=== PATIENT | female | born 1935 | race Caucasian/White ===

== ENCOUNTER 2021-12-02 11:43 | Inpatient (IN) | payer OTHER, MEDICAID, SELFPAY ==
[~2021-12-02] VITALS: Ht 160 cm; Wt 68.0 kg
[2021-12-02 11:48] VITALS: BP 133/83
--- NOTE | 2021-12-02 11:48 | NUR ---
86 Y/O F BIBA FROM HOME C/O FALL OCCURED ON THURSDAY. UNKNOWN LOC. NO BLOOD THINNERS. NO TRAUMA OR INJURY. GCS 14. A&OX2. PT DENIES ANY PAIN. MEDHX: HTN, ARTHRITIS NKA
[2021-12-02] MEDS ORDERED: NACL 0.9% 1,000 ML IV ONE ×2 (11:50→15:50)
--- NOTE | 2021-12-02 12:09 | NUR ---
PT'S JYOTSNA PHONE NUMBER SEBASTIEN NINI [phone]
--- NOTE | 2021-12-02 12:41 | NUR ---
BLOOD WORK COLLECTED AND SENT TO LAB
--- NOTE | 2021-12-02 12:51 | NUR ---
PT TAKEN TO CT SCAN VIA [facility]
[2021-12-02 12:52] LABS: HEMOGLOBIN 13.8 g/dL (12.0-16.0); LYMPHOCYTES # (AUTO) 0.9 K/uL (2.5-16.5)
[2021-12-02 12:55] LABS: BASOPHILS % (AUTO) 0.3 % (0.0-2.0); EOSINOPHILS % (AUTO) 0.2 % (0.0-4.0); HEMATOCRIT 34.5 % (36-48); LYMPHOCYTES % (AUTO) 7.6 % (20.5-51.1); MEAN CORPUSCULAR HEMOGLOBIN 38 pg (27-31); MEAN CORPUSCULAR HGB CONC 40 g/dL (33-37); MEAN CORPUSCULAR VOLUME 94.6 fL (80-94); MONOCYTES # (AUTO) 0.8 K/uL (0.8-1.0); MONOCYTES % (AUTO) 7.3 % (1.7-9.3); NEUTROPHILS # (AUTO) 9.6 K/uL (1.8-7.7); NEUTROPHILS % (AUTO) 84.6 % (42.2-75.2); PLATELET COUNT (AUTO) 275 K/uL (140-450); RED BLOOD CELL COUNT(AUTO) 3.65 MIL/uL (4.20-5.40); RED CELL DISTRIBUTION WIDTH 13.9 % (11.6-13.7); WHITE BLOOD COUNT (AUTO) 11.4 K/uL (4.8-10.8)
--- NOTE | 2021-12-02 13:11 | NUR ---
pt returned from CT via [facility]
[2021-12-02 13:33] LABS: ANION GAP 18.5 (8-16); CHLORIDE 108 mmol/L (98-107); CREATININE 0.8 mg/dL (0.6-1.3); GLUCOSE 128 mg/dL (74-106); POTASSIUM 3.5 mmol/L (3.5-5.1); SODIUM SERUM 147 mmol/L (136-145); UREA NITROGEN, BLOOD 58 mg/dL (7-18)
[2021-12-02 13:36] LABS: ALBUMIN 3.6 g/dL (3.4-5.0); BILIRUBIN,DIRECT 0.2 mg/dL (0.0-0.3); PHOSPHORUS 3.6 mg/dL (2.5-4.9); TOTAL BILIRUBIN 1.2 mg/dL (0.0-1.0)
--- NOTE | 2021-12-02 13:58 | NUR ---
PT PLACED ON BEDPAN TO AID IN COLLECTING URINE.
--- NOTE | 2021-12-02 14:47 | NUR ---
PT IS LAYING IN BED AT LOWEST LEVEL WITH SIDE RAILS UP. VOCIES NO COMPLAINTS OF PAIN AT THIS TIME.
--- NOTE | 2021-12-02 16:02 | NUR ---
PT IS LAYING IN BED COMFORTABLY. NORMAL VITAL SIGNS AT THIS MOMENT.
--- NOTE | 2021-12-02 16:19 | NUR ---
URINE SAMPLE WAS WALKED TO LAB AND RECIEVED BY [employer].
--- NOTE | 2021-12-02 16:40 | NUR ---
ANEUDY OCONNOR WALKED TO LAB AND HANDED TO [employer].
[2021-12-02] MEDS ORDERED: DONE5TAB6 PO (16:53)
[2021-12-02] MEDS ORDERED: LOVA40TA4 PO (16:53)
[2021-12-02] MEDS ORDERED: METO50TE2 PO (16:53)
[2021-12-02] MEDS ORDERED: HYDR-4004 PO (16:53)
[2021-12-02] MEDS ORDERED: AMLO2.5T PO (16:53)
[2021-12-02] MEDS ORDERED: ENAL-197 PO (16:53)
[2021-12-02 17:23] LABS: BILIRUBIN,URINE 1+ (NEGATIVE); BLOOD, URINE 2+ (NEGATIVE); LEUKOCYTE ESTERASE ,URINE 2+ (NEGATIVE); NITRITE, URINE POSITIVE (NEGATIVE); UGLUCOSE NEGATIVE (NEGATIVE)
[2021-12-02 17:40] LABS: APPEARANCE,URINE CLOUDY (CLEAR); COLOR,URINE AMBER (YELLOW)
[2021-12-02 18:12] LABS: RBC,URINE 11-20 (MOD) /HPF (0-5); WBC,URINE 20-60 /HPF (0-5)
[2021-12-02] MEDS ORDERED: guaiFENesin DM 200/20 MG-10 ML 10 ML UDC PO PRN (18:55)
[2021-12-02] MEDS ORDERED: POTASSIUM CHLORIDE 10 MEQ TABER PO PRN (18:55)
[2021-12-02] MEDS ORDERED: ACETAMINOPHEN 325 MG TAB PO PRN (18:55)
[2021-12-02] MEDS ORDERED: ZOLPIDEM 5 MG TAB PO PRN (18:55)
[2021-12-02] MEDS ORDERED: ONDANSETRON 4 MG/2 ML VIAL IM/IVP PRN (18:55)
[2021-12-02] MEDS ORDERED: HYDROcodone/APAP 7.5/325 MG 1 TAB PO PRN (18:55)
[2021-12-02] MEDS ORDERED: DOCUSATE SODIUM 100 MG GELCAP PO PRN (18:55)
--- NOTE | 2021-12-02 19:25 | NUR ---
Pt report given to hiram. Transfer of care at this time.
[2021-12-02] MEDS ORDERED: cefTRIAXone 1,000 MG VIAL ONE (19:54)
--- NOTE | 2021-12-02 21:07 | NUR ---
Patient will be admitted to care of DR PEMBERTON. Admited to Med/Surg. Will go to room 121A. Belongings list completed. Report to DAVID LEMUS.
[2021-12-02] MEDS: NACL 0.9% 1,000 ML IV SCH (21:08)
[2021-12-02 21:49] VITALS: BP 140/51
--- NOTE | 2021-12-02 22:09 | NUR ---
Admitted from ED, with chief complaint of PT STATED PCP REFERRED TO HOSPITAL FOR S/P FALL ON 11/29/21. PT IS 86 y/o, Female, Cooperative. PT ARRIVED TO [facility] VIA [facility] ON 2114. A&OX3. VERBALLY RESPONSIVE AND ABLE TO COMMUNICATE NEEDS. VSS. HEAD TO TOE ASSESSMENT COMPLETED WITH NIESHA LEMUS. PT STATES HER PCP DR. HEARD WILL HAVE COMPLETE MEDICAL RECORD. [facility]. PT STATES SHE LIVES ALONE WITH A CAREGIVER COMING BY FOR A COUPLE HOURS. PT STATES SHE IS ABLE TO AMBULATE ON HER OWN WITH WALKER AND CANE. PT HAS A PRESSURE ULCER ON LOWER BUTTOCKS. PT IS INCONTINENT. FAMILY MEMBER WAS NOTIFIED. MRSA SWAB COLLECTED. PHOTOS PRESENT ON ADMISSION. PT IS oriented to call light, bed, phone,television, bathroom, smoking policy, visiting hours, procedures, ID bracelet on. Belongings list checked.
--- NOTE | 2021-12-02 23:15 | NUR ---
CHECKED PT. STABLE AND ASLEEP. CHEST IS RISING AND FALLING EVENLY. RESPIRATIONS EVEN AND UNLABORED WITH NO APPARENT S/SX OF ACUTE DISTRESS. WHITE COMMUNICATION BOARD UPDATED. ALL SAFETY MEASURES IN PLACE. CALL LIGHT WITHIN REACH. WILL CONTINUE TO MONITOR.
--- NOTE | 2021-12-03 01:15 | NUR ---
CLEANED AND CHANGED PT. TOLERATED WELL. DENIES PAIN. RESPIRATIONS EVEN AND UNLABORED WITH NO APPARENT S/SX OF ACUTE DISTRESS. WHITE COMMUNICATION BOARD UPDATED. ALL SAFETY MEASURES IN PLACE. CALL LIGHT WITHIN REACH. WILL CONTINUE TO MONITOR.
--- NOTE | 2021-12-03 03:15 | NUR ---
ROUNDED ON PT. STABLE AND ASLEEP. CHEST IS RISING AND FALLING EVENLY. RESPIRATIONS EVEN AND UNLABORED WITH NO APPARENT S/SX OF ACUTE DISTRESS. WHITE COMMUNICATION BOARD UPDATED. ALL SAFETY MEASURES IN PLACE. CALL LIGHT WITHIN REACH. WILL CONTINUE TO MONITOR.
[2021-12-03 04:00] VITALS: BP 136/59
[2021-12-03] MEDS ORDERED: Z-GUARD PASTE TP ONE (04:07)
--- NOTE | 2021-12-03 05:15 | NUR ---
CLEANED AND CHANGED PT. TOLERATED WELL. DENIES PAIN. RESPIRATIONS EVEN AND UNLABORED WITH NO APPARENT S/SX OF ACUTE DISTRESS. ALL NEEDS MET. WHITE COMMUNICATION BOARD UPDATED. ALL SAFETY MEASURES IN PLACE. CALL LIGHT WITHIN REACH. WILL CONTINUE TO MONITOR.
[2021-12-03 06:02] LABS: BASOPHILS % (AUTO) 0.7 % (0.0-2.0); EOSINOPHILS # (AUTO) 0.2 K/uL (0-0.4); EOSINOPHILS % (AUTO) 2.8 % (0.0-4.0); HEMATOCRIT 25.7 % (36-48); HEMOGLOBIN 10.9 g/dL (12.0-16.0); LYMPHOCYTES # (AUTO) 0.9 K/uL (2.5-16.5); LYMPHOCYTES % (AUTO) 12.7 % (20.5-51.1); MEAN CORPUSCULAR HEMOGLOBIN 41 pg (27-31); MEAN CORPUSCULAR HGB CONC 42 g/dL (33-37); MEAN CORPUSCULAR VOLUME 97.8 fL (80-94); MONOCYTES # (AUTO) 0.6 K/uL (0.8-1.0); MONOCYTES % (AUTO) 9.1 % (1.7-9.3); NEUTROPHILS # (AUTO) 5.1 K/uL (1.8-7.7); NEUTROPHILS % (AUTO) 74.7 % (42.2-75.2); PLATELET COUNT (AUTO) 191 K/uL (140-450); RED BLOOD CELL COUNT(AUTO) 2.63 MIL/uL (4.20-5.40); RED CELL DISTRIBUTION WIDTH 13.7 % (11.6-13.7); WHITE BLOOD COUNT (AUTO) 6.8 K/uL (4.8-10.8)
[2021-12-03 06:03] LABS: CARBON DIOXIDE 20.1 mmol/L (21-32); CHLORIDE 107 mmol/L (98-107); CREATININE 0.6 mg/dL (0.6-1.3); GLUCOSE 75 mg/dL (74-106); POTASSIUM 3.1 mmol/L (3.5-5.1); SODIUM SERUM 141 mmol/L (136-145); UREA NITROGEN, BLOOD 41 mg/dL (7-18)
--- NOTE | 2021-12-03 07:15 | NUR ---
ENDORSED PT TO LILY OLSEN FOR CONTINUITY OF CARE. PT IS STABLE.
--- NOTE | 2021-12-03 07:16 | NUR ---
RECEIVED REPORT FROM PAYROLL MASTER NURSE FOR CONTINUITY OF CARE. PT IS IN BED SLEEPING AT THIS TIME. RESPIRATIONS ARE EVEN AND UNLABORED ON ROOM AIR. NO SIGNS OF DISTRESS NOTED. PT IS ALERT AND ORIENTED X3. ABLE TO VERBALIZE NEEDS TO STAFF. PT IS ON REGULAR DIET, WITH BOWEL SOUNDS PRESENT. PT IS INCONTINENT OF BLADDER, UTILIZES BED PALACIOS FOR BOWEL MOVEMENTS. PT HAS IV TO R AC, 20G. SKIN IS WARM AND DRY. CALL LIGHT WITHIN REACH. ALL SAFETY MEASURES IN PLACE. WILL CONTINUE TO MONITOR.
[2021-12-03 08:00] VITALS: BP 123/55
[2021-12-03] MEDS: PANTOPRAZOLE 40 MG TABEC PO SCH (08:38)
--- NOTE | 2021-12-03 08:40 | NUR ---
ADMINISTERED ALL SCHEDULED MEDICATIONS. PT POTASSIUM 3.1 THIS MORNING. ADMINISTERED PO K DUR 40 MEQ PRN ORDERED. EDUCATED PT ON MEDS ADMINISTERED. PT VERBALIZED UNDERSTANDING. WILL CONTINUE TO MONITOR.
--- NOTE | 2021-12-03 09:31 | NUR ---
COVERING IV MEDICATIONS FOR LILY. ADMINISTERED ROCEPHIN 1G ORDERED VIA R ANTECUBITAL IV.
[2021-12-03] MEDS: NACL 0.9% 1,000 ML IV SCH (11:51)
--- NOTE | 2021-12-03 11:59 | NUR ---
DC PLANNING: CALLED [facility], SPOKE WITH LETY [phone] COVERING FOR URSULA STATED DIDN'T RECEIVE ANY CLINICALS. FAXED ALL CLINICALS AND NOTIFIED HER PT DC PLAN TO SNF. CM TO FOLLOW Addendum: 12/03/21 at 1607 by Melvina Jerry RN DC PLANNING: SPOKE WITH PATIENT AND PT'S DAUGHTER SEBASTIEN AGREED THAT PATIENT CAN GO TO [facility] FOR PHYSICAL THERAPY. PATIENT REQUESTING TO GO TO [facility] BECAUSE SHE WORKED THERE FOR 30 YRS. CALLED [facility] [phone] SPOKE WITH NENA (ADMIN) STATED HAVE A BED ,WILL REVIEW THE PAPERWORK AND CALL US BACK. FAXED THE REQUEST TO [facility]. CM TO FOLLOW
--- NOTE | 2021-12-03 12:15 | NUR ---
PT CALLED, FAMILY AT BEDSIDE. WENT OVER PLAN OF CARE. ANSWERED ALL QUESTIONS. WILL CONTINUE TO MONITOR.
--- NOTE | 2021-12-03 13:11 | NUR ---
PATIENT HAS BEEN SCREENED AND CATEGORIZED LOW NUTRITION RISK. PATIENT WILL BE SEEN WITHIN 7 DAYS OF ADMISSION. 12/09/21-12/04/21 REVIEWED BY DEVEN [address] Addendum: 12/03/21 at [address] 12/09/21*
[2021-12-03] MEDS: Z-GUARD PASTE TP SCH (13:29)
--- NOTE | 2021-12-03 15:49 | NUR ---
PT DAUGHTER CALLED, STATED THAT PT WANTED TO USE BEDPAN. ASSISTED PT ON TO BED PALACIOS. PT ABLE TO VOID ONCE. WILL CONTINUE TO MONITOR.
--- NOTE | 2021-12-03 17:23 | NUR ---
ASSISTED WITH CHANGING AND REPOSITIONING PT. PT HAD 1 BOWEL MOVEMENT. WILL CONTINUE TO MONITOR.
--- NOTE | 2021-12-03 19:10 | NUR ---
ENDORSED PT TO FORESTRY ENGINEER NURSE FOR CONTINUITY OF CARE. ALL NEEDS MET THROUGHOUT SHIFT. PT IS STABLE.
--- NOTE | 2021-12-03 19:15 | NUR ---
RECEIVED BEDSIDE REPORT FROM DAY SHIFT RN FOR CONTINUITY OF CARE. PT IS AWAKE. PT IS NOT IN ANY DISTRESS. BREATHING RHYTHMIC AND UNLABORED. IVF RUNNING PER MD ORDER. CALL LIGHT WITHIN REACH. ALL SAFETY MEASURES TAKEN. WILL CONTINUE TO MONITOR THE PT.
[2021-12-03 20:00] VITALS: BP 141/60
--- NOTE | 2021-12-03 22:51 | NUR ---
PT IS AWAKE IN BED WATCHING TELEVISION. PT IS NOT IN ANY DISTRESS. BREATHING RHYTHMIC AND UNLABORED. IVF RUNNING PER MD ORDER. CALL LIGHT WITHIN REACH. ALL SAFETY MEASURES TAKEN WILL CONTINUE TO MONITOR THE PT.
[2021-12-04] MEDS: Z-GUARD PASTE TP SCH ×2 (01:36→13:14)
--- NOTE | 2021-12-04 02:15 | NUR ---
PT TRANSPORTED VIA [facility]. PT IS SLEEPING ON 2L NC. PT HAD LEFT AC 18 GAUGE WITH NS RUNNING 80. CLEAR LUNG SOUNDS. NO HEART MURMURS. ACTIVE BOWEL SOUNDS ALL QUADRANTS. PT IS AMBULATORY WITH STEADY GAIT. PT EDUCATED JOINTER MACHINE OPERATOR LIGHT SYSTEM. COMMUNICATION BOARD UPDATED. CALL LIGHT WITHIN REACH. ALL SAFETY MEASURES TAKEN. WILL CONTINUE TO MONITOR THE PT. Addendum: 12/04/21 at 0453 by Nemesio Perkins RN DOCUMENTED ON WRONG PT.
[2021-12-04 04:00] VITALS: BP 130/73
[2021-12-04] MEDS: NACL 0.9% 1,000 ML IV SCH (04:15)
--- NOTE | 2021-12-04 04:50 | NUR ---
PT IS SLEEPING IN BED COMFORTABLY. PT IS NOT IN ANY DISTRESS. BREATHING RHYTHMIC AND UNLABORED. IVF RUNNING PER MD ORDER. CALL LIGHT WITHIN REACH. ALL SAFETY MEASURES TAKEN. WILL CONTINUE TO MONITOR THE PT.
[2021-12-04 06:02] LABS: BASOPHILS % (AUTO) 0.8 % (0.0-2.0); EOSINOPHILS # (AUTO) 0.3 K/uL (0-0.4); EOSINOPHILS % (AUTO) 5.3 % (0.0-4.0); HEMATOCRIT 24.2 % (36-48); HEMOGLOBIN 10.4 g/dL (12.0-16.0); LYMPHOCYTES % (AUTO) 19.2 % (20.5-51.1); MEAN CORPUSCULAR HEMOGLOBIN 42 pg (27-31); MEAN CORPUSCULAR HGB CONC 43 g/dL (33-37); MEAN CORPUSCULAR VOLUME 97.9 fL (80-94); MONOCYTES # (AUTO) 0.7 K/uL (0.8-1.0); MONOCYTES % (AUTO) 13.2 % (1.7-9.3); NEUTROPHILS # (AUTO) 3.2 K/uL (1.8-7.7); NEUTROPHILS % (AUTO) 61.5 % (42.2-75.2); PLATELET COUNT (AUTO) 181 K/uL (140-450); RED BLOOD CELL COUNT(AUTO) 2.47 MIL/uL (4.20-5.40); RED CELL DISTRIBUTION WIDTH 13.8 % (11.6-13.7); WHITE BLOOD COUNT (AUTO) 5.2 K/uL (4.8-10.8)
[2021-12-04 06:08] LABS: T4 (THYROXINE) 7.3 ug/dL (4.5-12.0)
[2021-12-04 06:13] LABS: ANION GAP 13.4 (8-16); CARBON DIOXIDE 23.5 mmol/L (21-32); CHLORIDE 111 mmol/L (98-107); CREATININE 0.7 mg/dL (0.6-1.3); GLUCOSE 107 mg/dL (74-106); POTASSIUM 3.9 mmol/L (3.5-5.1); SODIUM SERUM 144 mmol/L (136-145); UREA NITROGEN, BLOOD 28 mg/dL (7-18)
--- NOTE | 2021-12-04 07:30 | NUR ---
ENDORSED PT TO DAY SHIFT RN FOR CONTINUITY OF CARE. PT IS STABLE.
--- NOTE | 2021-12-04 07:35 | NUR ---
RECEIVED REPORT FROM LABOR CREW SUPERVISOR NURSE FOR CONTINUITY OF CARE. PT IS SLEEPING AT THIS TIME. PT IS A&O 3. RESPIRATIONS EVEN AND UNLABORED ON ROOM AIR. NO SIGNS OF DISTRESS NOTED. NO PAIN NOTED. IV RAC 20G INFUSING NS @ 60. SKIN DRY AND WARM TO TOUCH WITH SMALL LEFT BUTTOCK SORE. WITH REDNESS NOTED TO BUTTOCKS. ABDOMEN IS NON-TENDER, NON-DISTENDED WITH ACTIVE BOWEL SOUND PRESENT ON ALL 4 QUADS. CALL LIGHT WITHIN REACH. SAFETY MEASURES IN PLACE. WILL CONTINUE TO MONITOR.
[2021-12-04] MEDS: PANTOPRAZOLE 40 MG TABEC PO SCH (08:30)
--- NOTE | 2021-12-04 08:31 | NUR ---
ADMINISTERED ALL SCHEDULED MEDICATIONS. EDUCATED PT REGARDING MEDS ADMINISTERED. PT VERBALIZED UNDERSTANDING. WILL CONTINUE TO MONITOR.
[2021-12-04] MEDS ORDERED: ASCORBIC ACID 500 MG TAB PO SCH (09:30)
--- NOTE | 2021-12-04 09:48 | NUR ---
CONSERVATION TECHNICIAN CALLED AND REPORTED THAT PT HAD PULLED OUT IV. EDUCATED PT ON BENEFITS OF IV ACCESS, WELL NEEDS OF IV ACCESS. PT VERBALIZED UNDERSTANDING. PT STATES SHE DOES NOT REMEMBER PULLING OUT IV. WILL ATTEMPT IV ACCESS PLACEMENT.
--- NOTE | 2021-12-04 10:39 | NUR ---
DC PLANNING: PATIENT ACCEPTED TO [facility], ROOM 14A, WAITING FOR FOLLOWING MD ASSIGNMENT. BK SPOKE WITH URSULA AT [facility], SHE NEEDS TO REVIEW THE PATIENTS INFORMATION AND HAVE HER SNF'IST REVIEW FOR AUTHORIZATION. ONCE SHE CALLS CM BACK WITH [facility] TRANSPORT WILL BE ARRANGED. CM WILL FOLLOW. Addendum: 12/04/21 at 1327 by Elena De La Cruz CM DC PLANNING: AUTHORIZATION FROM [facility] GIVEN BY URSULA WHO WILL PROVIDE THE NUMBER TO [facility]. [facility] TRANSPORT ARRANGED WITH JONATH[facility] ([phone]), MANAGER OF PRODUCTION TIME 3-4 PM. AUTH # FOR [facility] [id number]. NUMBER TO CALL REPORT [phone]. PATIENTS DAUGHTER AMAN UPDATED ON TRANSPORT TIME ([phone]) AND DC PLAN. CM WILL FOLLOW.
[2021-12-04] MEDS ORDERED: ROC2I IV (11:34)
[2021-12-04] MEDS ORDERED: FER325 PO (11:34)
[2021-12-04] MEDS ORDERED: DOCU-299 PO (11:34)
[2021-12-04] MEDS ORDERED: VITC500 PO (11:34)
[2021-12-04] MEDS ORDERED: PANT40EC56 PO (11:34)
--- NOTE | 2021-12-04 12:16 | NUR ---
DISCHARGE ORDER IN PLACE. WILL BEGIN PAPERWORK.
--- NOTE | 2021-12-04 15:26 | NUR ---
WENT OVER DISCHARGE PAPERWORK WITH PT. ANSWERED ALL QUESTIONS. PT SIGNED ALL PAPERWORK. [facility]SP[facility] HERE TO ACROBATIC RIGGER PT. ALL BELONGINGS TAKEN UPON DISCHARGE.
[2021-12-04] MEDS ORDERED: FERROUS SULFATE 325 MG TABEC PO SCH (17:00)
[2021-12-04 20:39] LABS: CHOL/HDL RATIO 2.6 (1-4.5); FREE T4 (FREE THYROXINE) 1.38 ng/dL (0.76-1.46); THYROID STIMULATING HORMONE 0.24 uIU/mL (0.34-3.74)
--- NOTE | 2021-12-05 13:13 | NUR ---
LATE ENTRY- IV NORMAL SALINE IV FLUIDS DISCONTINUED AT 2107 UPON ADMISSION.
== END 2021-12-04 15:30 | DRG 871 ==
LOC: MED 11:43 → MMU 18:52 → MTU 19:52
PROVIDERS: ADMIT Family Medicine; ATTEND Family Medicine
DX: A41.9 Sepsis, unspecified organism (principal); G93.41 Metabolic encephalopathy; N39.0 Urinary tract infection, site not specified; E87.6 Hypokalemia; Z20.822 Contact with and (suspected) exposure to COVID-19; D64.9 Anemia, unspecified; M47.815 Spondylosis without myelopathy or radiculopathy, thoracolumbar region; I70.90 Unspecified atherosclerosis; K44.9 Diaphragmatic hernia without obstruction or gangrene; K57.30 Diverticulosis of large intestine without perforation or abscess without bleeding; Z79.899 Other long term (current) drug therapy
CPT/HCPCS: 36415; 70450; 71045; 71250; 72125; 76641; 80048; 80076; 81001; 82150; 82553; 82607; 83036; 83540; 83690; 83735; 83880; 84100; 84436; 84439; 84443; 84479; 84484; 85025; 85610; 85730; 87040; 87081; 87086; 92526; 93005; 96360; 96361; 97110; 97116; 97163-GP; 97530; 99285; J0696; J7030; J7060; Q0092